=== PATIENT | female | born 1970 | race Caucasian/White ===

== ENCOUNTER 2019-12-05 10:40 | Emergency (ER) | payer BC, SELFPAY ==
[2019-12-05 10:56] VITALS: BP 128/105; PULSE 78; RESP 16; TEMP 37; O2SAT 98
--- NOTE | 2019-12-05 11:27 | ED.GENADULT ---
HPI - General Adult General Chief complaint: Extremity Injury, Lower Stated complaint: Jaw pain Time Seen by Provider: 12/05/19 11:27 Source: patient Mode of arrival: ambulatory Limitations: no limitations History of Present Illness HPI narrative: 5-year-old female patient presents to the [facility] with complaints of left-sided jaw pain. Patient states that over the weekend she [place] go [place] the river and [place]. Patient states that she did hit her left foot on a taniya piece of her friend's truck and states that is been a while since her tetanus. Patient states that the jaw pain started about 2 days ago she does have a history of TMJ. Patient states she has been taking the Tylenol for the pain. Patient states that it radiates to the left ear. Patient states that she has been in the river was concerned about possible ear infection from being in the river. Denies any fevers, body aches or chills. Patient states that she does see her dentist on December 06. Related Data Home Medications Medication Instructions Recorded Confirmed amlodipine 2.5 mg PO DAILY 12/05/19 12/05/19 citalopram 40 mg PO DAILY 12/05/19 12/05/19 methotrexate 12/05/19 methotrexate sodium 12/05/19 Allergies Allergy/AdvReac Type Severity Reaction Status Date / Time Penicillins Allergy Mild Hives Verified 12/05/19 11:07 Review of Systems Review of Systems: Narrative: CONSTITUTIONAL: Denies fever, chills, or sweats. EYES: Denies visual changes, redness, or discharge. ENT: Denies rhinorrhea, congestion, sore throat, positive left otalgia. Positive left-sided jaw pain CARDIOVASCULAR: Denies chest pain, palpitations, or edema. RESPIRATORY: Denies cough or dyspnea. GASTROINTESTINAL: Denies abdominal pain, nausea, vomiting, or diarrhea. GENITOURINARY: Denies dysuria or hematuria. SKIN: Denies rash or itching. MUSCULOSKELETAL: Denies back pain, joint pain, or myalgia. NEUROLOGIC: Denies headache, numbness, or weakness. PSYCHIATRIC: Denies anxiety or depression. [facility] Social History Social History Gender identity (if verbalized by the patient): Female Comments At the time of my signature I agree with nursing past medical history, surgical, social, and family history. There is no relevant family history pertinent to the presenting complaint. Exam Narrative: Exam Narrative: GENERAL: Well-appearing, well-nourished, and in no acute distress. HEAD: Normocephalic, atraumatic. EYES: PERRLA and EOMI. ENT: Nares clear, no rhinorrhea or epistaxis. Mucous membranes moist. Bilateral TMs are clear no erythema or foreign bodies in the canal. Posterior pharynx with no erythema, tonsil management, exudates or lesions present. Patient does not have any obvious broken teeth or dental caries noted on exam of the oral cavity however the left side of the cheek was palpated and possibly a small abscess noted to the cheek area near the jaw where her pain is. Patient does complain of pain when palpating the specific area. NECK: Supple. No lymphadenopathy CHEST: Clear to auscultation. No respiratory distress. HEART: Regular rate and rhythm. No murmur heard. Normal peripheral pulses. ABDOMEN: Soft, nontender, nondistended, normal active bowel sounds. EXTREMITIES: Normal range of motion. No edema. SKIN: Warm, dry, no rash. Patient has small superficial abrasion noted to the dorsal portion of the left foot of the midfoot. There is no surrounding erythema, no warmth to the touch. The area is scabbed over and appears to be healing well. NEURO: No focal deficits. Alert and oriented x3. Course Vital Signs Vital signs: Vital Signs Temperature 37.0 C 12/05/19 10:56 Pulse Rate 78 12/05/19 10:56 Respiratory Rate 16 12/05/19 10:56 Blood Pressure 128/105 H 12/05/19 10:56 Pulse Oximetry 98 12/05/19 10:56 Temperature 37.0 C 12/05/19 10:56 Pulse Rate 78 12/05/19 10:56 Respiratory Rate 16 12/04
[2019-12-05] MEDS: TETANUS,DIPHTHERIA,AC PERTUSSIS ADULT (0.5 ML) BOOSTRIX IM (11:43)
== END 2019-12-05 11:51 | disposition home or self-care (01) ==
PROVIDERS: Emergency Provider Nurse Practitioner Family; PCP Internal Medicine
DX: K04.7 Periapical abscess without sinus (principal); S90.812A Abrasion, left foot, initial encounter; W22.8XXA Striking against or struck by other objects, initial encounter; Z23 Encounter for immunization; I10 Essential (primary) hypertension; M19.90 Unspecified osteoarthritis, unspecified site; F32.9 Major depressive disorder, single episode, unspecified
CPT/HCPCS: 90471; 90715; 99213; G0463

== ENCOUNTER 2020-12-08 01:05 | Day surgery (SDC) | payer BC, SELFPAY ==
[2020-12-05 14:23] VITALS: BMI 38.5
[2020-12-08 10:58] VITALS: BP 122/79; PULSE 81; RESP 16; TEMP 35.5; O2SAT 99; BMI 37.6
[2020-12-08] MEDS: LACTATED RINGERS 1,000 ML 150 ML IV CONT (11:05)
--- NOTE | 2020-12-08 12:02 | WPDANESEPPF ---
Anes - Initial Pre Proc Eval Procedure: Operation Date: 12/08/20 12:15 Proposed Procedures p Screening Colonoscopy - Gopal Berman MD Date/Time: 12/08/20 12:02 Surgeon: Gopal Berman MD Pre Op Diagnosis: neoplasm screening Patient Data Age: 50 Gender: F Height: 1.65 m Weight: 102.7 kg Last Vital Signs Temp 96 F L 12/08/20 10:58 Pulse 81 12/08/20 10:58 Resp 16 12/08/20 10:58 BP 122/79 12/08/20 10:58 Pulse Ox 99 12/08/20 10:58 Allergies Allergy/AdvReac Type Severity Reaction Status Date / Time Penicillins Allergy Severe Difficulty Verified 12/08/20 10:57 Breathing Home Medications Medication Instructions Recorded Confirmed Type cholecalciferol (vitamin D3) 25 2,000 unit PO DAILY cap 02/17/19 12/05/20 History mcg (1,000 unit) capsule ferrous sulfate 325 mg (65 mg 325 mg PO .QD cap 02/17/19 12/05/20 History iron) capsule,extended release folic acid 1 mg tablet 1 mg PO DAILY 02/17/19 12/05/20 History mecobalamin (vitamin B12) 1,000 1,000 mcg SUBLINGUAL DAILY 02/17/19 12/05/20 History mcg disintegrating tablet,sublingual methotrexate sodium 2.5 mg tablet 20 mg PO WEEKLY tablet 02/17/19 12/05/20 History citalopram 40 mg tablet 40 mg PO DAILY #90 tablet 08/31/20 12/05/20 Rx amlodipine 5 mg tablet 5 mg PO DAILY #90 tablet 09/11/20 12/05/20 Rx Patient hx anesthesia problems: none Family hx anesthesia problems: none PMFSH Past Medical History Medical History (Updated 08/31/20 @ 14:35 by INÉS Gomez) Allergies Anemia Anxiety and depression Heartburn History of frequent headaches HTN (hypertension) Raynauds disease Rheumatoid arthritis UTI (urinary tract infection) Vaginal disorder Family History Family History Father Hypertension Mother Diabetes mellitus Sibling Hypertension Anxiety Skin cancer Social History Social History Smoking status: Never smoker Alcohol intake: current Drinks per week: 42 Alcohol use details: 5 days a week Substance use: never Substance use type: does not use Living arrangements: with family Gender identity (if verbalized by the patient): Female Spiritual care concerns: No Anes - Eval Final PreProcedure Day of Procedure 12/08/20 12:02 Patient weight: obese Heart: regular rate and rhythm Lungs: clear to auscultation Airway: Mallampati scale class II Neurological: alert and oriented Last oral intake: >/= 8 hours ASA classification: III Emergent: no Anesthetic plan: proceed Anesthesia type and monitoring: general GIVS and standard monitoring Informed Consent: The patient's anesthetic plan and its attendant risks and benefits were discussed with the patient/family/POA. Questions were solicited and answers provided to the satisfaction of the patient/family/POA.
--- NOTE | 2020-12-08 12:17 | PM.HPGS ---
History of Present Illness History of Present Illness Consent: Risks, benefits, and alternatives have been discussed and questions answered. Patient agrees to proceed with procedure. Chief complaint: neoplasm screening Narrative: Mel Webb is a 50 year old female with screening colonoscopy, last one 10 years ago. Review of Systems Constitutional: Constitutional: Denies headache(s) and Denies weakness Eyes: Eyes: Denies blurry vision ENT: Reports Normal hearing present, Denies headache(s) and Denies neck pain Cardiovascular: Cardiovascular: Denies chest pain and Denies dyspnea Respiratory: Respiratory: Denies dyspnea Gastrointestinal: Gastrointestinal: Reports no additional gastrointestinal complaints Genitourinary: Genitourinary: Denies dysuria Musculoskeletal: Musculoskeletal: Denies neck pain Integumentary/Breasts: Skin/Breast: Denies dry skin Neurologic: Reports Normal hearing present, Denies headache(s) and Denies weakness Psychiatric: Psychiatric: Denies anxiety Endocrine: Endocrine: Denies change in body appearance Hematologic/Lymphatic: Hematologic/Lymphatic: Denies easy bleeding Allergic/Immunologic: Allergic/Immunologic: Denies urticaria PMFSH Past Medical History Medical History (Updated 08/31/20 @ 14:35 by MARY Gomez-C) Allergies Anemia Anxiety and depression Heartburn History of frequent headaches HTN (hypertension) Raynauds disease Rheumatoid arthritis UTI (urinary tract infection) Vaginal disorder Family History Family History Father Hypertension Mother Diabetes mellitus Sibling Hypertension Anxiety Skin cancer Social History Social History Smoking status: Never smoker Alcohol intake: current Drinks per week: 42 Alcohol use details: 5 days a week Substance use: never Substance use type: does not use Living arrangements: with family Gender identity (if verbalized by the patient): Female Spiritual care concerns: No Meds Home Medications and Allergies Home Medications Medication Instructions Recorded Confirmed Type cholecalciferol (vitamin D3) 25 2,000 unit PO DAILY cap 02/17/19 12/05/20 History mcg (1,000 unit) capsule ferrous sulfate 325 mg (65 mg 325 mg PO .QD cap 02/17/19 12/05/20 History iron) capsule,extended release folic acid 1 mg tablet 1 mg PO DAILY 02/17/19 12/05/20 History mecobalamin (vitamin B12) 1,000 1,000 mcg SUBLINGUAL DAILY 02/17/19 12/05/20 History mcg disintegrating tablet,sublingual methotrexate sodium 2.5 mg tablet 20 mg PO WEEKLY tablet 02/17/19 12/05/20 History citalopram 40 mg tablet 40 mg PO DAILY #90 tablet 08/31/20 12/05/20 Rx amlodipine 5 mg tablet 5 mg PO DAILY #90 tablet 09/11/20 12/05/20 Rx Allergies Allergy/AdvReac Type Severity Reaction Status Date / Time Penicillins Allergy Severe Difficulty Verified 12/08/20 10:57 Breathing Vital Signs Vital Signs - 24 hr 12/08/20 10:58 Temperature 96 F L Pulse Rate 81 Respiratory Rate 16 Blood Pressure 122/79 Pulse Oximetry 99 Exam Const: General: comfortable and no acute distress HENMT: General nose exam: Normal nares present Eyes: General: appearance normal, both eyes and all related structures Neck: Neck: no JVD Resp: Auscultation: clear to auscultation bilaterally Cardio: Rate: regular rate Rhythm: regular rhythm GI: Inspection: non-distended GI Palp: Yes Soft to palpation Skin: General skin exam: normal color Neuro: General: gait normal Speech: normal speech Extrem: General: normal to inspection Psych: Mental Status: mental status grossly normal Assessment and Plan Assessment and plan (1) Screening for colon cancer: Code(s): Z12.11 - Encounter for screening for malignant neoplasm of colon Status: Acute Assessment and Plan: colonoscopy
[2020-12-08 12:37] VITALS: BP 112/78; PULSE 60; RESP 18; O2SAT 98
[2020-12-08 12:47] VITALS: BP 108/68; PULSE 61; RESP 20; O2SAT 98
[2020-12-08 12:57] VITALS: BP 114/63; PULSE 58; RESP 18; O2SAT 100
== END 2020-12-08 13:10 | disposition home or self-care (01) ==
PROVIDERS: PCP Internal Medicine; Visit Provider Internal Medicine Gastroenterology
PROC: 0DJD8ZZ Inspection of Lower Intestinal Tract, Via Natural or Artificial Opening Endoscopic (ICD-10-PCS; CPT 45378; principal; 2020-12-08 12:15)
DX: Z12.11 Encounter for screening for malignant neoplasm of colon (principal); R12 Heartburn; I10 Essential (primary) hypertension; I73.00 Raynaud's syndrome without gangrene; M06.9 Rheumatoid arthritis, unspecified; F32.9 Major depressive disorder, single episode, unspecified; F41.9 Anxiety disorder, unspecified
CPT/HCPCS: 45378; J2704; J7120

== ENCOUNTER 2021-07-28 12:09 | Emergency (ER) | payer BC, SELFPAY ==
[2021-07-28 12:15] VITALS: BP 173/98; PULSE 88; RESP 20; TEMP 36.6; O2SAT 99
--- NOTE | 2021-07-28 12:21 | ED.BURNSMOKE ---
HPI - Burn/Smoke Inhalation General Chief complaint: Burn/Smoke Inhalation Stated complaint: right hand burn Time Seen by Provider: 07/28/21 12:21 Source: patient History of Present Illness HPI Narrative: 10-year-old tetanus immunization rheumatoid arthritis, Raynaud's, anxiety / depression, hypertension chronic headaches presents to the ER after she spilled some cheese on her hands. She presents with -- blistering over right thumb and proximal index finger and erythema over the rest of her right hand. She also has 2 small-- 1 cm lesions on left hand. -- Severe pain. No other injuries noted. MD Complaint: burn Onset (ago): minute(s) ( 10 minutes ago) Type of Exposure: hot liquid ( melted cheese spill ) Smoke Inhalation: none Place: home Location: other ( hands) Location - Extremities: Right: hand Associated symptoms: denies other symptoms Related Data Home Medications Medication Instructions Recorded Confirmed cholecalciferol (vitamin D3) 25 2,000 unit PO DAILY cap 02/17/19 07/28/21 mcg (1,000 unit) capsule ferrous sulfate 325 mg (65 mg 325 mg PO .QD cap 02/17/19 07/28/21 iron) capsule,extended release folic acid 1 mg tablet 1 mg PO DAILY 02/17/19 07/28/21 mecobalamin (vitamin B12) 1,000 1,000 mcg SUBLINGUAL DAILY 02/17/19 07/28/21 mcg disintegrating tablet,sublingual methotrexate sodium 2.5 mg tablet 20 mg PO WEEKLY tablet 02/17/19 07/28/21 Allergies Allergy/AdvReac Type Severity Reaction Status Date / Time Penicillins Allergy Severe Difficulty Verified 12/08/20 10:57 Breathing Review of Systems Review of Systems: All systems reviewed & are unremarkable except as noted in HPI and below Constitutional: Constitutional: Reports as per HPI and Reports no additional constitutional complaints Eyes: Eyes: Reports as per HPI and Reports no additional eye complaints ENT: Reports system reviewed and no additional complaints, except as documented and Reports as per HPI Cardiovascular: Cardiovascular: Reports as per HPI and Reports no additional cardiovascular complaints Respiratory: Respiratory: Reports as per HPI and Reports no additional respiratory complaints Gastrointestinal: Gastrointestinal: Reports as per HPI and Reports no additional gastrointestinal complaints Genitourinary: Genitourinary: Reports no additional female genitourinary complaints and Reports as per HPI Musculoskeletal: Comments: chronic joint pains Integumentary/Breasts: Comments: 1st and second-degree melton of the right hand left hand Neurologic: Reports system reviewed and no additional complaints, except as documented and Reports as per HPI Psychiatric: Psychiatric: Reports no additional psychiatric complaints, Reports as per HPI and Reports anxiety Endocrine: Endocrine: Reports no additional endocrine complaints Hematologic/Lymphatic: Hematologic/Lymphatic: Reports no additional hematologic/lymphatic complaints and Reports as per HPI Allergic/Immunologic: Allergic/Immunologic: Reports no additional allergic/immunologic complaints and Reports as per HPI PMFSH Past Medical History Medical History Allergies Anemia Anxiety and depression Heartburn History of frequent headaches HTN (hypertension) Raynauds disease Rheumatoid arthritis UTI (urinary tract infection) Vaginal disorder Family History Family History Father Hypertension Mother Diabetes mellitus Sibling Hypertension Anxiety Skin cancer Social History Social History Smoking status: Never smoker Alcohol intake: current Drinks per week: 42 Alcohol use details: 5 days a week Substance use: never Substance use type: does not use Gender identity (if verbalized by the patient): Female Spiritual care concerns: No Exam Const: General: alert Orientation/cons
[2021-07-28] MEDS: HYDROmorphone HCL INJ (*CRX) 2 MG/ML VIAL 1 MG IM (12:25)
[2021-07-28] MEDS: ONDANSETRON HCL ODT 4 MG TABLET PO (12:25)
[2021-07-28 13:01] VITALS: PULSE 88; RESP 20; TEMP 36.6; O2SAT 99
--- NOTE | 2021-07-28 13:59 | PC.NURSE ---
1250 gauze bulky loose dressing applied to right hand.
== END 2021-07-28 13:05 | disposition home or self-care (01) ==
PROVIDERS: Emergency Provider Internal Medicine Critical Care Medicine; PCP Internal Medicine
DX: T23.041A Burn of unspecified degree of multiple right fingers (nail), including thumb, initial encounter (principal); X10.1XXA Contact with hot food, initial encounter
CPT/HCPCS: 96372; 99283; A9270; J1170

== ENCOUNTER 2022-03-04 12:41 | Outpatient (CLI) | payer BC, SELFPAY ==
[2022-03-04 19:53] LABS: Basophils Absolute Auto 0.1 K/mm3 (0.0-0.1); Basophils Percent Auto 0.6 % (0.2-1.2); Eosinophils Absolute Auto 0.2 K/mm3 (0-0.3); Eosinophils Percent Auto 2.3 % (0-4.4); Hematocrit 41.7 % (37.0-47.0); Hemoglobin 13.5 g/dL (12.0-15.0); Immature Granulocyte Absolute 0.06 K/mm3 (0.00-0.031); Immature Granulocyte Percent A 0.6 % (0-0.5); Lymphocytes Absolute Auto 2.31 K/mm3 (0.9-3.2); Lymphocytes Percent Auto 24.8 % (18.3-44.2); Mean Corpuscular HGB Conc 32.4 g/dl (32-36); Mean Corpuscular Hemoglobin 32.1 pg (26-34); Mean Corpuscular Volume 99.3 fl (80-100); Mean Platelet Volume 10.5 fl (7.4-10.4); Monocytes Absolute Auto 0.7 K/mm3 (0.1-0.6); Neutrophils Percent Auto 64.7 % (45.5-73.1); Platelet Count Result 255 k/mm3 (150-375); Red Cell Distribution Width 12.9 % (11.5-14.5); White Blood Count 9.3 K/mm3 (4.5-10.0)
[2022-03-04 20:05] LABS: Anion Gap 10 mmol/L (8-16); Blood Urea Nitrogen 15 mg/dL (7-17); Calcium 9.1 mg/dL (8.4-10.2); Carbon Dioxide 29 mmol/L (22-30); Chloride 101 mmol/L (98-107); Estimated Glomerular Filt Rate > 60; Glucose 122 mg/dL (65-110); Potassium 4.5 mmol/L (3.4-5.0); Sodium 140 mmol/L (137-145)
[2022-03-04 20:15] LABS: Iron 117 ug/dL (37-170)
[2022-03-04 20:30] LABS: Percent Iron Saturation 37 % (20-50)
== END 2022-03-04 12:42 | disposition home or self-care (01) ==
PROVIDERS: PCP Internal Medicine; Visit Provider Clinical Nurse Specialist
DX: R79.89 Other specified abnormal findings of blood chemistry (principal); I10 Essential (primary) hypertension; E83.10 Disorder of iron metabolism, unspecified; Z83.42 Family history of familial hypercholesterolemia
CPT/HCPCS: 36415; 80048; 81256; 82728; 83540; 83550; 85025

== ENCOUNTER 2022-03-13 11:19 | Outpatient (CLI) | payer BC, SELFPAY ==
--- NOTE | ~2022-03-13 | CT_ITS ---
EXAMINATION: CT abdomen pelvis w con DATE: 03/13/2022 11:44 INDICATION: Persistent left lower quadrant abdominal pain TECHNIQUE: Computed tomography (CT) of the abdomen and pelvis was performed with 100 CC Omnipaque 350 intravenous contrast. Automated exposure control and iterative reconstruction technique were employe d. Exam dose: 1057.71 mGy-cm total exam DLP. COMPARISON: None. FINDINGS: The lung bases are clear. Normal heart size. No pericardial or pleural effusion. The liver, gallbladder, spleen, pancreas and the bile ducts and pancreatic duct as well has the adren al glands and kidneys are unremarkable. Normal caliber of the abdominal aorta. No intraperitoneal or retroperitoneal or pelvic mass lesion or adenopathy or ascites. Uterus, adnexal areas and urinary bladder appear normal. Normal appendix. No bowel obstruction, bowel wall thickening, pneumatosis or intraperitoneal free air is detected. Small fat-containing umbilical hernia. Prominent degenerative spurring of the lower thoracic spine. Mild degenerative change of the lumbar s pine. No suspicious osteolytic or osteoblastic lesions are noted. IMPRESSION: Normal appendix; no significant abnormality Reviewed, dictated and finalized at [facility]. Reviewed, dictated and finalized at [facility]. [facility]
[2022-03-13 11:36] LABS: Estimated Glomerular Filt Rate > 60
== END 2022-03-13 11:20 ==
PROVIDERS: PCP Internal Medicine; Visit Provider Clinical Nurse Specialist
DX: R10.32 Left lower quadrant pain (principal)
CPT/HCPCS: 74177; Q9967

== ENCOUNTER → 2022-05-24 11:42 | Outpatient (CLI) | payer BC, SELFPAY ==
--- NOTE | ~2022-05-24 | MM_ITS ---
EXAMINATION: MM screening [place]iston BI w goran HISTORY: Screening mammogram TECHNIQUE: Craniocaudal and mediolateral oblique 3-D tomosynthesis images were obtained and synthetic 2-D images were generated. CAD analysis was submitted and interpreted. COMPARISON: No prior mammogram is available for comparison at this institution. BREAST PARENCHYMAL COMPOSITION: There are scattered areas of fibroglandular density. FINDINGS: There is no evidence of suspicious mass, calcification, or architectural distortion to sugg est malignancy in either breast. There has been no suspicious interval change. IMPRESSION: 1. No mammographic evidence of malignancy. 2. Recommend routine screening mammography in one year. BI-RADS Category 1: Negative Reviewed, dictated and finalized at [facility]. THCARE EDUCATOR
== END ==
PROVIDERS: PCP Obstetrics & Gynecology; Visit Provider Clinical Nurse Specialist
DX: Z12.31 Encounter for screening mammogram for malignant neoplasm of breast (principal)
CPT/HCPCS: 77063; 77067

== ENCOUNTER 2022-06-17 14:18 | Outpatient (CLI) | payer BC, SELFPAY ==
[2022-06-17 14:30] LABS: Basophils Absolute Auto 0.1 K/mm3 (0.0-0.1); Basophils Percent Auto 0.5 % (0.2-1.2); Eosinophils Absolute Auto 0.2 K/mm3 (0-0.3); Eosinophils Percent Auto 1.9 % (0-4.4); Hematocrit 39.7 % (37.0-47.0); Hemoglobin 13.1 g/dL (12.0-15.0); Immature Granulocyte Absolute 0.05 K/mm3 (0.00-0.031); Immature Granulocyte Percent A 0.5 % (0-0.5); Lymphocytes Absolute Auto 2.15 K/mm3 (0.9-3.2); Lymphocytes Percent Auto 19.4 % (18.3-44.2); Mean Corpuscular Volume 96.8 fl (80-100); Mean Platelet Volume 9.8 fl (7.4-10.4); Monocytes Absolute Auto 0.9 K/mm3 (0.1-0.6); Monocytes Percent Auto 8.5 % (2.6-8.5); Neutrophils Absolute Auto 7.7 K/mm3 (1.3-6.7); Neutrophils Percent Auto 69.2 % (45.5-73.1); Platelet Count Result 285 k/mm3 (150-375); Red Cell Distribution Width 12.6 % (11.5-14.5); White Blood Count 11.1 K/mm3 (4.5-10.0)
[2022-06-17 16:32] LABS: Iron 129 ug/dL (37-170)
[2022-06-17 16:36] LABS: Alanine Aminotransferase 33 U/L (6-35); Albumin Level 4.4 g/dL (3.5-5.1); Alkaline Phosphatase 85 U/L (38-126); Anion Gap 5 mmol/L (8-16); Aspartate Amino Transferase 27 U/L (14-36); Bilirubin,Total 0.5 mg/dL (0.2-1.3); Blood Urea Nitrogen 20 mg/dL (7-17); Calcium 9.4 mg/dL (8.4-10.2); Carbon Dioxide 28 mmol/L (22-30); Chloride 105 mmol/L (98-107); Estimated Glomerular Filt Rate > 60; Glucose 108 mg/dL (65-110); Sodium 138 mmol/L (137-145)
[2022-06-17 16:45] LABS: Percent Iron Saturation 44 % (20-50)
== END 2022-06-17 14:19 | disposition home or self-care (01) ==
LOC: ANHLAB 14:19
PROVIDERS: PCP Obstetrics & Gynecology; Visit Provider Internal Medicine Hematology & Oncology
DX: E83.110 Hereditary hemochromatosis (principal)
CPT/HCPCS: 36415; 80053; 82728; 83540; 83550; 85025

== ENCOUNTER 2023-09-30 09:08 | Outpatient (CLI) | payer OTHER, SELFPAY ==
[2023-09-30 12:26] LABS: Basophils Percent Auto 0.4 % (0.2-1.2); Eosinophils Absolute Auto 0.2 K/mm3 (0-0.3); Eosinophils Percent Auto 2.6 % (0-4.4); Hematocrit 39.6 % (37.0-47.0); Hemoglobin 12.7 g/dL (12.0-15.0); Immature Granulocyte Absolute 0.02 K/mm3 (0.00-0.031); Immature Granulocyte Percent A 0.3 % (0-0.5); Lymphocytes Absolute Auto 2.27 K/mm3 (0.9-3.2); Lymphocytes Percent Auto 28.6 % (18.3-44.2); Mean Corpuscular HGB Conc 32.1 g/dl (32-36); Mean Corpuscular Hemoglobin 31.6 pg (26-34); Mean Corpuscular Volume 98.5 fl (80-100); Mean Platelet Volume 10.7 fl (7.4-10.4); Monocytes Absolute Auto 0.8 K/mm3 (0.1-0.6); Monocytes Percent Auto 9.8 % (2.6-8.5); Neutrophils Absolute Auto 4.6 K/mm3 (1.3-6.7); Neutrophils Percent Auto 58.3 % (45.5-73.1); Platelet Count Result 247 k/mm3 (150-375); Red Blood Count 4.02 M/mm3 (4.2-5.4); Red Cell Distribution Width 12.6 % (11.5-14.5); White Blood Count 7.9 K/mm3 (4.5-10.0)
[2023-09-30 12:46] LABS: Alanine Aminotransferase 23 U/L (6-35); Albumin Level 4.2 g/dL (3.5-5.1); Alkaline Phosphatase 88 U/L (38-126); Anion Gap 6 mmol/L (4-12); Aspartate Amino Transferase 42 U/L (14-36); Bilirubin,Total 0.4 mg/dL (0.2-1.3); Blood Urea Nitrogen 17 mg/dL (7-17); Calcium 9.1 mg/dL (8.4-10.2); Carbon Dioxide 30 mmol/L (22-30); Chloride 106 mmol/L (98-107); Cholesterol 175 mg/dL (0-200); Estimated Glomerular Filt Rate > 60; Glucose 111 mg/dL (65-110); HDL Direct 64 mg/dL; Potassium 4.8 mmol/L (3.4-5.0); Sodium 142 mmol/L (137-145); Triglycerides 95 mg/dL (<150)
[2023-09-30 12:57] LABS: LDL Cholesterol Direct 91 mg/dL
[2023-09-30 13:08] LABS: Vitamin D 25 Hydroxy 68.5 ng/mL
[2023-09-30 14:30] LABS: Hemoglobin A1C 5.7 % (<5.7)
== END 2023-09-30 09:09 | disposition home or self-care (01) ==
LOC: ANHGOSHLAB 09:10
PROVIDERS: PCP Internal Medicine; Visit Provider Clinical Nurse Specialist
DX: D64.9 Anemia, unspecified (principal); E83.119 Hemochromatosis, unspecified; I10 Essential (primary) hypertension; R94.4 Abnormal results of kidney function studies; R73.09 Other abnormal glucose; E53.8 Deficiency of other specified B group vitamins
CPT/HCPCS: 36415; 80053; 80061; 82306; 82607; 83036; 84443; 85025

== ENCOUNTER 2023-11-24 10:44 | Outpatient (CLI) | payer OTHER, SELFPAY ==
--- NOTE | ~2023-11-24 | MM_ITS ---
EXAMINATION: MM screening triston BI w goran HISTORY: Screening TECHNIQUE: Craniocaudal and mediolateral oblique 3-D tomosynthesis images were obtained and synthetic 2-D images were generated. CAD analysis was submitted and interpreted. COMPARISON: Comparison to multiple prior studies sequentially, with oldest reviewed study dated 05/24. BREAST PARENCHYMAL COMPOSITION: Not dense: There are scattered areas of fibroglandular density. FINDINGS: There is no evidence of suspicious mass, calcification, or architectural distortion to sugg est malignancy in either breast. There has been no suspicious interval change. IMPRESSION: 1. No mammographic evidence of malignancy. 2. Recommend routine screening mammography in one year. BI-RADS Category 1: Negative Reviewed, dictated and finalized at [facility].
== END 2023-11-24 10:45 ==
LOC: MICIMG 10:45
PROVIDERS: PCP Clinical Nurse Specialist; Visit Provider Clinical Nurse Specialist
DX: Z12.31 Encounter for screening mammogram for malignant neoplasm of breast (principal)
CPT/HCPCS: 77063; 77067

== ENCOUNTER 2024-02-23 09:43 | Outpatient (CLI) | payer OTHER, SELFPAY ==
[2024-03-15 11:43] VITALS: BMI 41.6
--- NOTE | 2024-03-15 11:43 | P.SLEEP_ITS ---
Sleep Study - Home Unattended Date of Study: 02/23/24 Ordering Provider: MARY Gomez-Marcio Interpreting Provider: Rubina Craft, DO Home Sleep Study Type: Watch PAT Height: 1.6 m Weight: 106.594 kg Body Mass Index: 41.6 Neck Circumference (inches): 15.75 [place]: 14 Reason for Sleep Study Excessive daytime sleepiness Sleep History The patient is a 53-year-old female that had a sleep study ordered by the primary care for evaluation of sleep apnea. The patient admits to snoring loudly, excessive daytime sleepiness, interruptions of breathing while asleep, trouble maintaining sleep, trouble falling asleep and unwanted behaviors during sleep. The patient admits to having difficulty falling asleep and staying asleep. The patient denies any hypnotic or sedative use. The patient denies feeling anxious about sleep. The patient admits to feeling tired or sleepy during the day. She feels on refreshed in the morning. She has the urge to fall asleep during the day. She feels drowsy while driving. She denies stopping breathing while asleep. She denies choking or gasping while asleep. She denies having trouble breathing on her back. She denies morning headaches. She admits to having a dry or sore mouth/ throat in the morning. She denies nocturnal heartburn. She urinates twice per night. She denies sleep paralysis, cataplexy and hypnagogic / hypnopompic hallucinations. She admits to clenching or grinding her teeth. She admits to kicking or jerking her legs excessively at night. She denies having a restless feeling in her legs. She goes to bed at 11:30 p.m. on weekdays and at 1:00 a.m. on the weekends. It takes her 2 hours to fall asleep on weekdays and 3 hours to fall asleep on weekends. She typically gets 5 hours of sleep on the weekends. Her sleep is not at all restorative on her days off. She denies any planned naps. She admits to acting out dreams or having violent dreams. She does sleep walk as an adult and as a child. She consumes more than 5 caffeinated beverages per day. She consumes more than 3 alcoholic beverages on most night. She denies tobacco use. She does have a rotating shift schedule at work. [facility] Past Medical History Medical History Allergies Anemia Anxiety and depression Elevated ferritin Elevated glucose level Encounter for screening mammogram for breast cancer Family history of hemochromatosis Heartburn History of frequent headaches Hospital discharge follow-up HTN (hypertension) Hypernatremia Left lower quadrant pain Raynauds disease Rheumatoid arthritis Screening for colon cancer Tobacco abuse UTI (urinary tract infection) Vaginal disorder Vaginal yeast infection Family History Family History Father Hypertension Mother Diabetes mellitus Sibling Hypertension Anxiety Skin cancer Social History Social History Smoking status: Never smoker Alcohol intake: current Drinks per week: 42 Alcohol use details: 5 days a week Substance use: never Substance use type: does not use Lack of Transportation: No Lack of Food: Never True Current Housing: I Have Housing Concerned About Future Housing: No Difficulty Paying Gas/Electric Bills: No Difficulty Paying for Meds: No Currently Unemployed: No Education: High School Diploma/GED Difficulty w/ Childcare or Family Care: No Living arrangements: with family Gender identity (if verbalized by the patient): Female Spiritual care concerns: No Medications Home Medications Medication Instructions Recorded Confirmed Type cholecalciferol (vitamin D3) 25 2,000 unit PO DAILY 02/17/19 11/20/23 History mcg (1,000 unit) capsule ferrous sulfate 325 mg (65 mg 325 mg PO .QD 02/17/19 11/20/23 History iron) capsule,extended release folic acid 1 mg tablet 1 mg PO DAILY 02/17/19 11/20/23 History mecobalamin (vitamin B12) 1,000 1,000 mcg sublingual DAILY 02/17/19 11/20/23 History mcg disintegrating tablet,sublingual hydrocodone 5 mg-acetaminophen 325 1 tablet PO Q8H PRN pain #10 tabs 07/28/21 11/20/23 Rx mg tablet triamcinolone acetonide 0.1 % 1 applic topical TID #30 grams 08/09/23 08/15/24 Rx topical cream citalopram 40 mg tablet See Rx Instructions .Route 09/30/23 11/20/23 Rx .COMPLEX #90 tabs alprazolam 0.25 mg tablet (Xanax) 0.25 mg PO DAILY #10 tabs 11/20/23 11/20/23 Rx lisinopril 20 mg tablet 20 mg PO DAILY #90 tabs 01/02/24 Rx eszopiclone 2 mg tablet (Lunesta) 2 mg PO QHS #1 tablet 02/23/24 Rx Sleep Procedure The sleep study was completed using [employer] a technically adequate device with seven channels: peripheral arterial tone, actigraphy, body position, snore, respiratory movement, pulse oximetry, sleep staging, and heart rate. Prior to using the device, the patient received verbal and written instructions for its application and was provided with the help desk phone number for additional telephonic instruction with 24-hour availability of qualified personnel to answer questions. The study was scored using CMS guidelines. Sleep Architecture The total recording time is 9 hrs, 12 min. The total sleep time is 8 hrs, 3 min. Sleep latency is 5 minutes. REM latency is 87 minutes. The patient had 13 episodes of waking. Sleep architecture shows 15.6% deep sleep, 63.3% light sleep, and (as % Total Sleep Time) showed NREM (Light 63.3%; Deep 15.6%), and a 21.1% stage REM. The patient spent 36.7% of total sleep time in the supine position. Sleep efficiency was 87.50. Respiratory Analysis The overall AHI (pAHI 4%:) is 38.7. The central AHI is 3.2. The AHI was 30.7 in NREM and 67.9 in REM sleep. The AHI was 50.6 in Supine and 31.5 in Non-supine sleep. Percent of Mark Torres respirations is 0.0. Oximetry Data The oxygen desaturation index (KAMRAN 4%:) is 37.4. The mean saturation is 93%, and the lowest saturation is 69%. Time spent with saturation < 88% is 30.6 minutes. Snoring Profile Snoring average intensity is 54 dB. The patient snored above 45 decibels for 354.9 minutes, 73.4% of sleep time. Cardiac Profile The average pulse rate is 64 beats per minutes. The lowest pulse rate is 47 bpm. The highest pulse rate reported is 102 bpm. Atrial fibrillation was not detected. Premature beats occur <0.1 per minute. Assessment and Plan Assessment and Plan (1) LIEN (obstructive sleep apnea): Code(s): G47.33 - Obstructive sleep apnea (adult) (pediatric) Status: Acute Assessment and Plan: The patient had an overall AHI of 37.4 with desaturation down to 69%. This is consistent with severe sleep apnea. I recommend that the patient had a CPAP titration study with the use of a hypnotic (Lunesta 2-3 mg or Ambien 5-10 mg) to ensure we obtain enough sleep data and find an optimal pressure. The patient mentioned having dream enactment behavior in her sleep history. If she is acting out her dreams, she needs to be followed by Sleep Medicine. Data The data obtained during this sleep study is adequate for interpretation. Certification This sleep study has been reviewed by a board certified sleep medicine physician.
== END 2024-02-24 15:45 | disposition home or self-care (01) ==
LOC: ANHCSM 09:47
PROVIDERS: PCP Clinical Nurse Specialist; Visit Provider Clinical Nurse Specialist
DX: G47.10 Hypersomnia, unspecified (principal); G47.33 Obstructive sleep apnea (adult) (pediatric)
CPT/HCPCS: 95800

== ENCOUNTER 2024-08-23 15:00 | Outpatient (CLI) | payer OTHER, SELFPAY ==
--- OUTSIDE RECORDS SUMMARY | 2024-08-23 15:06 | XMS_ITS | Clinical Summary ---
Author Organization [facility] [place] [facility] Address [address] [place] [address] Care Team Providers Care Fire Hose Curer Name Role Phone Yuan Hope DO Primary Care Provider Allergies Active Allergy Reactions Criticality Noted Date Comments Penicillins Shortness of Breath/Wheezing High 2022 Medications citalopram (CeleXA) 40 mg tablet Take 40 mg by mouth daily. Active lisinopriL (PRINIVIL) 10 mg tablet Take by mouth daily. Active cyanocobalamin 1,000 mcg Tablet Take 1,000 mcg by mouth daily. Active cholecalciferol, vitamin D3, 5,000 unit Take 400 Units by mouth daily. Active Garlic 100 mg Tablet Take by mouth. Active Active Problems No known active problems Family History Medical History Relation Name Comments Skin Cancer Father Diabetes Mother Skin Cancer Sister 1 No Known Problems Sister 2 No Known Problems Son Relation Name Status Comments Father Alive Mother Alive Sister 1 Alive Sister 2 Alive Son Alive Social History Tobacco Use Types Packs/Day Years Used Date Smoking Tobacco: Never Smokeless Tobacco: Never Tobacco Cessation:Counseling Given: Not Answered Alcohol Use Standard Drinks/Week Comments Yes 30 (1 standard drink = 0.6 oz pu re alcohol) Comments Unknown Sex and Gender Information Value Date Recorded Sex Assigned at Not on file 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 Gender Identity Not on file Sexual Orientation Not on file Last Filed Vital Signs Vital Sign Reading Time Taken Comments Blood Pressure 138/96 10/17/2022 3:50 PM CDT Pulse 89 10/17/2022 3:49 PM CDT Temperature 36.9 C (98.5 F) 10/17/2022 3:49 PM CDT Respiratory Rate 10 10/17/2022 3:49 PM CDT Oxygen Saturation 97% 10/17/2022 3:49 PM CDT Inhaled Oxygen Concentration - - Weight 107.5 kg (237 lb) 10/17/2022 3:49 PM CDT Height 167.6 cm (5' 6) 06/17/2022 1:38 PM CDT Body Mass Index 38.25 06/17/2022 1:38 PM CDT Plan of Treatment Health Maintenance Due Date Last Done Comments DTAP/TDAP/TD VACCINES (1 - Tdap) 12/03/1990 HEPATITIS B VACCINES (1 of 3 - 19+ 3-dose series) 11/06 HPV/Cotest (21-29) 12/03/1992 CERVICAL CANCER SCREENING 12/03/2001 HPV/Cotest (30-65) 12/03/2001 PAP SMEAR 12/03/2001 BREAST CANCER SCREENING 2011 COLORECTAL SCREENING 12/03/2016 Colorectal Cancer Screening 12/03/2016 FIT-DNA Q 3 years 12/03/2016 FIT/FOBT Q 1 year 12/03/2016 Flex Sig/CT Colonography Q 5 years 12/03/2016 ZOSTER VACCINE (1 of 2) 12/03/2021 INFLUENZA VACCINE (#1) [address] [place] [address] [address] PREFERRED Care Teams Fire Hose Curer Relationship Specialty Start Date End Date Yuan Hope DO [address] [address] PCP - General Internal Medicine 06/17/22
--- OUTSIDE RECORDS SUMMARY | 2024-08-23 15:06 | XMS_ITS | Clinical Summary ---
Author Organization 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 Gender Identity Not on file Sexual Orientation Not on file Plan of Treatment Health Maintenance Due Date Last Done Comments Cervical Cancer Screening Pa p Smear (Age 30 to 64) Every 3 Years 1971 Colorectal Cancer Screening Colonoscopy (10 Years) 1971 Annual Physical 12/03/1974 Hepatitis C 12/03/1989 DTaP, Tdap and Td Vaccines ( 1 - Tdap) 12/03/1990 Hepatitis B Vaccines (1 of 3 - 19+ 3-dose series) 12/03/1990 Cervical Cancer Screening Pa p with HPV Testing (Age 30 to 64) Every 5 Years 12/03/2001 Cervical Cancer Screening with HPV 12/03/2001 Mammogram Screening 2011 Pneumococcal Vaccine: 50+ Ye ars (1 of 1 - PCV) 12/03/2021 Zoster Vaccines (1 of 2) 12/03/2021 COVID-19 Vaccine (2023-2 5 season) 2023 Meningococcal B Vaccine Aged Out No l onger eligible based on patient's age to complete this topic Meningococcal Vaccine Aged Out No [facility] eligible based on patient's age to complete this topic RSV Immunizations Under 20 Months Aged Out No longer eligible based on patient's age to complete this topic
--- OUTSIDE RECORDS SUMMARY | 2024-08-23 15:06 | XMS_ITS | Clinical Summary ---
Author Organization [facility] [employer] Address [address] [place] [address] Care Team Providers Care Health Promotion Specialist Name Role Phone Yuan Hope DO Primary Care Provider [phone] Source Comments [facility],non-owned Affiliates and Associated Physician Practices is amultiple site organization consisting of ambulatory clinics and hospital sitesin [place], [place], [place] and [place]. This disclosure is being madepursuant to the Care Everywhere program and may not contain all information available regarding this patient. Last updated 17.[facility] [employer] Allergies Active Allergy Reactions Criticality Noted Date Comments Penicillins Shortness of Breath High 09/07/2014 Medications * Be aware that medications may not be up to date on this document. Alwaysverify current medications with the patient. folic acid (FOLVITE) 1 MG tablet Take 1 mg by mouth DAILY. 90 tablet 3 11/28/2016 Active hydroxychloroqui ne (PLAQUENIL) 200 MG tablet 60 tablet 5 03/22/2016 Active amLODIPine (NORVASC) 5 MG tablet Take 5 mg by mouth DAILY. 30 tablet 6 12/20/2015 Active citalopram (CELEXA) 40 MG tablet Take 40 mg by mouth DAILY. 30 tablet 6 12/20/2015 Active HYDROcodone-acet aminophen (NORCO) 5-325 MG tablet 0 10/30/2015 Active sulfaSALAzine EC (AZULFIDINE ENTAB) 500 MG tablet Take 1 tablet by mouth 2 times daily as needed 90 tablet 12/09/2017 Active Active Problems Problem Noted Date Diagnosed Date Fracture of right calcaneus with routine healing 12/29/2015 Sprain of other ligament of right ankle, subsequent encounter 12/29/2015 Sprain of right knee 12/01/2015 Closed fracture of left calcaneus 11/03/2015 Pain in left ankle 11/03/2015 Noninfective gastroenteritis and colitis 016 Overview (07/07/2017): 05/2015: patient reports previous diagnosis collagenous colitis. Currently on sulfasalazine. Obtaining records to confirm. 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 Overview (07/07/2017): my whole life Other seasonal allergic rhinitis 09/07/2014 Personal history of other en docrine, nutritional and metabolic disease 09/07/2014 Raynaud's syndrome without gangrene 09/07/2014 Essential (primary) hypertension 09/07/2014 Major depressive disorder, single episode 2014 Overview (07/07/2017): Age 17, overdose attempt age 26 Family History Medical History Relation Name Comments Hypertension Father Status: Alive Diabetes Mother Status: Alive Hypertension Sister Status: Alive None Known Sister Status: Alive Asthma Son Status: Alive Thyroid Disease Neg Hx Relation Name Status Comments Father Mother Sister Son Social History Tobacco Use Types Packs/Day Years Used Date Smoking Tobacco: Never Smokeless Tobacco: Never Alcohol Use Standard Drinks/Week Comments Yes 0 (1 standard drink = 0.6 oz pur e alcohol) Comments Unknown Sex and Gender Information Value Date Recorded Sex Assigned at Not on file Legal Sex Female 5:14 PM FORM WORKER Gender Identity Not on file Sexual Orientation Not on file Last Filed Vital Signs Vital Sign Reading Time Taken Comments Blood Pressure 149/108 03/21/2016 12:08 PM FORM WORKER Pulse 84 03/21/2016 12:08 PM FORM WORKER Temperature 36.8 C (98.3 F) 03/21/2016 12:08 PM FORM WORKER Respiratory Rate 18 03/21/2016 12:08 PM FORM WORKER Oxygen Saturation 100% 03/21/2016 12:08 PM FORM WORKER Inhaled Oxygen Concentration - - Weight 99.9 kg (220 lb 4.8 oz) 03/21/2016 12:08 PM FORM WORKER Height 166.4 cm (5' 5.5) 03/21/2016 12:08 PM CS T Body Mass Index 36.1 03/21/2016 12:08 PM FORM WORKER Plan of Treatment Health Maintenance Due Date Last Done Comments COLOGUARD (AGES 45-75) - COL ON CA SCREENING 1971 COLON MONITORING 1971 COLONOSCOPY - COLON CA SCREENING 1971 CT COLONOGRAPHY - COLON CA SCREENING 1971 Colorectal Cancer Screening 1971 FIT - COLON CA SCREENING 1971 FLEX SIG - COLON CA SCREENING 1971 MAMMOGRAM 1971 HIV SCREENING 12/03/1986 DTAP/TDAP/TD VACCINES (1 - Tdap) 12/03/1990 HEPATITIS B VACCINE (1 of 3 - 19+ 3-dose series) 12/03/1990 LIPID TESTING 09/08/2019 09/07/2014 PNEUMOCOCCAL VACCINE 50+ (1 of 1 - PCV) 12/03/2021 ZOSTER VACCINE (1 of 2) 12/03/2021 COVID-19 VACCINE (1 - 2023-2 5 season) 2023 DEPRESSION SCREENING 04/07/2024 INFLUENZA VACCINE (Season Ended) 2024 HEPATITIS C SCREENING Completed 07/25/2015 HIB VACCINE Aged Out No longer eligi ble based on patient's age to complete this topic HPV VACCINE Aged Out No longer eligi ble based on patient's age to complete this topic MENINGOCOCCAL (Group B) VACC INE SHARED DECISION-MAKING Aged Out No longer eligibl e based on patient's age to complete this topic MENINGOCOCCAL GROUPS A/C/Y/W VACCINE Aged Out No longer eligible b ased on patient's age to complete this topic Procedures Procedure Name Priority Date/Time Associated Diagnosis Comments HEPATITIS C ANTIBODY Routine 07/25/2015 1:33 PM CDT LIPID PROFILE Routine 09/07/2014 10:01 AM CDT from Last 3 Months or Most Recently Relevant to Health Maintenance Results * HEPATITIS C ANTIBODY (07/25/2015 1:33 PM CDT) Hepatitis C Antibody Non-react kofi Non-reac tive [facility] Comment: Hepatitis C Antibody screen indicates no serologic evidence of past or current infection with Hepatitis C Virus. Patients with unexplained liver disease who are immunocompromised or suspected of having acute Hepatitis C infection may benefit from Nucleic Acid Test (SHRUTI) for Hepatitis C Viral RNA to confirm Hepatitis C status. Blood specimen (specimen) BLOOD SPECIMEN / Unknown 07/25/2015 1:33 PM CDT 07/25/2015 1:51 PM CDT us Zaria Chandra MD LAB - CHEMISTRY OR DERABLES Final Result [address] [phone] * LIPID PROFILE (09/07/2014 10:01 AM CDT) Cholesterol Total 177 <200 mg/dL [facility] HDL 68 >40 mg/dL [facility] Comment: ATP III Classification of HDL Cholesterol: <40 mg/dL: Considered a major risk factor. >60 mg/dL: Considered a negative risk factor. LDL Calculated 93 <100 mg/dL [facility] Comment: ATP III Classification of LDL Cholesterol: <100 mg/dL: Optimal 100 - 129 mg/dL: Near Optimal/Above Optimal 130 - 159 mg/dL: Borderline High 160 - 189 mg/dL: High >190 mg/dL: Very High Triglycerides 82 <150 mg/dL [facility] Comment: ATP III Classification of Triglycerides: <150 mg/dL: Normal 150 - 199 mg/dL: Borderline High 200 - 400 mg/dL: High >500 mg/dL: Very High Blood specimen (specimen) BLOOD SPECIMEN / Unknown 09/07/2014 10:01 AM CDT 09/07/2014 10:19 AM CDT us Margi Denton APRN-SUBSTANCE ADDICTION COORDINATOR LAB - CHEMISTRY ORDERABLE S Final Result [facility] [address] [place] [address], [facility] [phone] from Last 3 Months or Most Recently Relevant to Health Maintenance Insurance Care Teams Health Promotion Specialist Relationship Specialty Start Date End Date Yuan Hope DO PCP - General 07/03/15
--- OUTSIDE RECORDS SUMMARY | 2024-08-23 15:06 | XMS_ITS | Referral Summary ---
Author Organization [facility] Address [address] [place] [address] Care Team Providers Care Certified Orthotist Name Role Phone Yuan Hope DO Primary Care Provider [phone]- [phone] Allergies Active Allergy Reactions Criticality Noted Date Comments Penicillins Shortness of breath High 09/07/2014 Medications amLODIPine (NORVASC) 5 mg tablet TK 1 T PO D 05/05/2019 Active citalopram (CeleXA) 40 mg tablet TK 1 T PO D 05/02/2019 Active folic acid (FOLVITE) 1 mg tablet TK 1 T PO D 05/03/2019 Active methotrexate 2.5 mg tablet TK 8 TS PO ONCE WEEKLY UTD 03/30/2019 Active sulfaSALAzine (AZULFIDINE) 500 mg tablet 05/06/2019 Active azithromycin (ZITHROMAX) 250 mg tablet Take 2 tabs (500 mg) by mouth today, than 1 tab (250 mg) daily for 4 days. 6 tablet 04/04/2024 Active Active Problems Problem Noted Date Diagnosed Date Bilateral primary osteoarthritis of knee 020 Tear of PCL (posterior cruci ate ligament) of knee, right, subsequent encounter 09/02/2019 Fracture of right calcaneus with routine healing 12/29/2015 Sprain of right ankle 12/29/2015 Sprain of right knee 12/01/2015 Pain in left ankle 11/03/2015 Noninfective gastroenteritis and colitis 016 Overview (05/12/2019): 05/2015: patient reports previous diagnosis collagenous colitis. Currently on sulfasalazine. Obtaining records to confirm. 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 Other seasonal allergic rhinitis 09/07/2014 Major depressive disorder, single episode 2014 Overview (05/12/2019): Age 17, overdose attempt age 26 Raynaud's syndrome without gangrene 09/07/2014 Personal history of other en docrine, nutritional and metabolic disease 09/07/2014 Drug indicated 09/09/2012 Overview (07/12/2016): 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 non-steroidal anti-inflam Rheumatoid arthritis 09/09/2012 Overview (07/12/2016): Rheumatoid arthritis 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 Essential (primary) hypertension 09/09/2012 Overview (05/12/2019): Benign essential HTN Adjustment disorder with mixed anxiety and depre ssed mood 09/09/2012 Overview (07/12/2016): Adjustment reaction with anxiety and depression Social History Tobacco Use Types Packs/Day Years Used Date Smoking Tobacco: Never Smokeless Tobacco: Never Tobacco Cessation:Counseling Given: Not Answered Comments Unknown Sex and Gender Information Value Date Recorded Sex Assigned at Not on file Legal 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 Gender Identity Not on file Sexual Orientation Not on file Last Filed Vital Signs Vital Sign Reading Time Taken Comments Blood Pressure 154/110 04/04/2024 12:32 PM AIRPLANE COVERER Pulse 86 04/04/2024 11:49 AM AIRPLANE COVERER Temperature 37.1 C (98.8 F) 04/04/2024 11:49 AM AIRPLANE COVERER Respiratory Rate 18 04/04/2024 11:49 AM AIRPLANE COVERER Oxygen Saturation 98% 04/04/2024 11:49 AM AIRPLANE COVERER Inhaled Oxygen Concentration - - Weight 109.8 kg (242 lb) 04/04/2024 11:49 AM AIRPLANE COVERER Height 160 cm (5' 3) 04/04/2024 11:49 AM AIRPLANE COVERER Body Mass Index 42.87 04/04/2024 11:49 AM AIRPLANE COVERER Plan of Treatment Not on file Insurance [facility] P[facility] HMO/PPO Address: [address] [address] [place] [address] Care Teams Certified Orthotist Relationship Specialty Start Date End Date Yuan Hope DO PCP - General Internal Medicine 05/07/19
--- OUTSIDE RECORDS SUMMARY | 2024-08-23 15:06 | XMS_ITS | Clinical Summary ---
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 Essential (primary) hypertension 09/09/2012 Overview (05/12/2019): Benign essential HTN Adjustment disorder with mixed anxiety and depre ssed mood 09/09/2012 Overview (07/12/2016): Adjustment reaction with anxiety and depression Medical History Medical History Date Comments Anemia Hypertension Poor circulation Family History Medical History Relation Name Comments Arthritis Other Cancer Other Hypertension Other Relation Name Status Comments Other Social History Tobacco Use Types Packs/Day Years Used Date Smoking Tobacco: Never Smokeless Tobacco: Never Tobacco Cessation:Counseling Given: Not Answered Comments Unknown Sex and Gender Information Value Date Recorded Sex Assigned at Not on file Legal Sex Female 10:41 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 Gender Identity Not on file Sexual Orientation Not on file Obstetrics History Last Filed Vital Signs Vital Sign Reading Time Taken Comments Blood Pressure 154/110 04/04/2024 12:32 PM VISITOR 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 Pulse 86 04/04/2024 11:49 AM VISITOR 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 Temperature 37.1 C (98.8 F) 04/04/2024 11:49 AM VISITOR 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 Respiratory Rate 18 04/04/2024 11:49 AM VISITOR 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 Oxygen Saturation 98% 04/04/2024 11:49 AM VISITOR 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 Inhaled Oxygen Concentration - - Weight 109.8 kg (242 lb) 04/04/2024 11:49 AM VISITOR 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 Height 160 cm (5' 3) 04/04/2024 11:49 AM VISITOR 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 Body Mass Index 42.87 04/04/2024 11:49 AM VISITOR 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 Plan of Treatment Health Maintenance Due Date Last Done Comments Breast Cancer Screening-Mammogram 1971 Cervical Cancer Screening 1971 Colon Cancer Screening-Colonoscopy 1971 Depression Screening 1971 Hepatitis C Screening 1971 DTaP/Tdap/Td Vaccine (1 - Tdap) 12/03/1982 Hepatitis B Screening 12/03/1989 Regular Well Visit/Exam 18-64 12/03/1989 Pneumococcal vaccine <65 (1 of 2 - PCV) 12/03/1990 Zoster Vaccine (1 of 2) 12/03/1990 Influenza Vaccine (Season Ended) 2024 Insurance [facility] Care Teams Car Detailer Relationship Specialty Start Date End Date Yuan Hope DO PCP - General Internal Medicine 05/07/19
--- NOTE | 2024-09-17 12:47 | P.SLEEP_ITS ---
Sleep Study Date of Study: 08/23/24 Ordering Provider: Rubina Craft DO Interpreting Physician: Kyar Aranda MD Sleep Study Type: CPAP Titration Height: 1.6 m Weight: 108.409 kg Body Mass Index: 42.3 Neck Circumference (inches): 16 [place]: 14 Reason for Sleep Study * 02/23/2024 Home sleep test with [facility] showing severe obstructive sleep apnea, the overall AHI is 37.4 desaturation to 69% and mentioning of dream enactment behavior in her history. She returns for an in-lab CPAP titration. Sleep History This history is taken from her 02/23/2024 sleep questionnaire. Mel Webb is a 53-year-old female who returns for a CPAP titration due to positive findings with severe obstructive sleep apnea on her February 2020 for home sleep test. The patient admits to snoring loudly, excessive daytime sleepiness, interruptions of breathing while asleep, trouble maintaining sleep, trouble falling asleep and unwanted behaviors during sleep. The patient admits to having difficulty falling asleep and staying asleep. The patient denies any hypnotic or sedative use. The patient denies feeling anxious about sleep. The patient admits to feeling tired or sleepy during the day. She feels on refreshed in the morning. She has the urge to fall asleep during the day. She feels drowsy while driving. She denies stopping breathing while asleep. She denies choking or gasping while asleep. She denies having trouble breathing on her back. She denies morning headaches. She admits to having a dry or sore mouth/ throat in the morning. She denies nocturnal heartburn. She urinates twice per night. She denies sleep paralysis, cataplexy and hypnagogic / hypnopompic hallucinations. She admits to clenching or grinding her teeth. She admits to kicking or jerking her legs excessively at night. She denies having a restless feeling in her legs. She goes to bed at 11:30 p.m. on weekdays and at 1:00 a.m. on the weekends. It takes her 2 hours to fall asleep on weekdays and 3 hours to fall asleep on weekends. She typically gets 5 hours of sleep on the weekends. Her sleep is not at all restorative on her days off. She denies any planned naps. She admits to acting out dreams or having violent dreams. She does sleep walk as an adult and as a child. She consumes more than 5 caffeinated beverages per day. She consumes more than 3 alcoholic beverages on most night. She denies tobacco use. She does have a rotating shift schedule at work. [facility] Past Medical History Medical History Tobacco abuse Left lower quadrant pain Family history of hemochromatosis Elevated ferritin Hospital discharge follow-up Elevated glucose level Screening for colon cancer Encounter for screening mammogram for breast cancer Hypernatremia Raynauds disease Vaginal disorder History of frequent headaches Allergies Anemia Anxiety and depression Rheumatoid arthritis UTI (urinary tract infection) Heartburn HTN (hypertension) Vaginal yeast infection Family History Family History Father Hypertension Mother Diabetes mellitus Sibling Hypertension Anxiety Skin cancer Social History Social History Smoking status: Never smoker Alcohol intake: current Drinks per week: 42 Alcohol use details: 5 days a week Substance use: never Substance use type: does not use Lack of Transportation: No Lack of Food: Never True Current Housing: I Have Housing Concerned About Future Housing: No Difficulty Paying Gas/Electric Bills: No Difficulty Paying for Meds: No Currently Unemployed: No Education: High School Diploma/GED Difficulty w/ Childcare or Family Care: No Living arrangements: with family Gender identity (if verbalized by the patient): Female Spiritual care concerns: No Medications Home Medications ?Medication ?Instructions ?Recorded ?Confirmed ?Type cholecalciferol (vitamin D3) 25 2,000 unit PO DAILY 02/17/19 06/10/24 History mcg (1,000 unit) capsule mecobalamin (vitamin B12) 1,000 1,000 mcg sublingual DAILY 02/17/19 06/10/24 History mcg disintegrating tablet,sublingual triamcinolone acetonide 0.1 % 1 applic topical TID #30 grams 11/13/22 06/10/24 Rx topical cream alprazolam 0.25 mg tablet (Xanax) 0.25 mg PO DAILY #10 tabs 11/20/23 06/10/24 Rx citalopram 40 mg tablet See Rx Instructions .Route 04/02/24 06/10/24 Rx .COMPLEX #90 tabs eszopiclone 3 mg tablet (Lunesta) 3 mg PO QHS #1 tablet 06/10/24 06/10/24 Rx capsicum-garlic 200 mg-300 mg cap PO 06/14/24 History capsule cinnamon bark 1 cap PO DAILY 06/14/24 History turmeric 1 cap PO DAILY 06/14/24 History lisinopril 20 mg tablet 20 mg PO DAILY #90 tabs 07/09/24 Rx hydrochlorothiazide 12.5 mg tablet See Rx Instructions .Route 08/23/24 Rx .COMPLEX #90 tabs Sleep Procedure A full CPAP polysomnogram using the [employer] multi-channel system recorded the standard physiologic parameters including EEG, EOG, submentalis EMG, anterior tibialis EMG, EKG, body position, nasal and oral airflow using nasal pressure sensor and thermistor. Respiratory parameters of chest and abdominal movements were recorded with Respiratory Inductance Plethysmography belts. Oxygen saturation was recorded by pulse oximetry. Video monitoring was also performed. Sleep stages, periodic limb movements, and EEG arousals were scored in 30 second epochs according to the criteria of the AASM Scoring Manual. The Apnea-Hypopnea Index was calculated using CMS guidelines for definition of h ypopnea while scoring respiratory events. Patient self-administered Lunesta 3 mg at the beginning of the study. The patient was started on CPAP using a medium ResMed [employer] AirTouch F20 fullface mask with heated humidity, initial pressure was CPAP 5 cm, titrated through CPAP 6 cm, 7 cm, 8 cm, 9 cm, 10 cm, 11 cm, 12 cm and the of highest pressure was CPAP 13 cm. At CPAP 13 cm, the patient spent 144.5 minutes in bed, 10.5 minutes awake, 111.5 minutes in non-REM and 22.5 minutes in REM. Sleep efficiency was 92.7%. The residual apnea-hypopnea index was 1.8 and the lowest saturation was 92%. Supine REM occurred at this setting. Sleep Architecture The total recording time was 446.1 minutes. The total sleep time was 383.5 minutes. Sleep latency was 21.1 minutes. REM latency was 95.0 minutes. Sleep efficiency was 86.0%. The patient had 21 awakenings for an awakening index of 3.3. Wake after Sleep Onset time was 41.5 minutes. The patient spent 36.0 minutes, 9.4% of total sleep time in Stage N1. The patient spent 282.5 minutes, 73.7% in Stage N2. The patient spent 10.5 minutes, 2.7% in Stage N3. The patient spent 54.5 minutes, 14.2% in Stage REM. Respiratory Analysis The patient had 18 hypopneas, 7 obstructive apneas, no mixed apneas, and 9 central apneas for an overall Apnea Hypopnea Index of 5.3 events per hour. The REM Apnea Hypopnea Index was 7.7. The NREM Apnea Hypopnea Index was 4.9. The patient had a Central Apnea Hypopnea Index of 1.4. There were no Respiratory Effort Related Arousals. The Respiratory Disturbance Index is 7.0 events per hour. There was no evidence of Mark-Torres Respirations. Arousals There were 127 total arousals for an arousal index of 19.9. There were 74 spontaneous arousals for an index of 11.6. There were 8 arousals due to respiratory events for an index of 1.3. There were 30 arousals due to periodic limb movements for an index of 4.7. There were 15 arousals due to isolated limb movements for an index of 2.3. Periodic Limb Movements The patient had 47 isolated limb movements with an index of 7.4. The patient had 162 periodic limb movements with index of 25.3. Patient had a total of 209 limb movements with a total limb movement index of 32.7. Oximetry Data The patient had an average oxygen saturation of 93.9% in sleep with a minimum oxygen saturation of 86% and a maximum oxygen saturation of 97%. The patient had 33 oxygen desaturations that were 4% or greater resulting in an Oxygen Desaturation Index of 5.2. The patient spent 0.7 minutes, 0.1% of total sleep time with an oxygen saturation below 88%. Snoring Profile Snoring was moderate, eliminated during the titration. Cardiac Profile The EKG showed normal sinus rhythm. The patient had an average pulse rate of 72.4 bpm with a minimum pulse rate of 60 bpm and a maximum pulse rate of 88 bpm. No arrhythmias noted. EEG Profile EEG was unremarkable, no evidence of seizures. Assessment and Plan Assessment and Plan (1) LIEN (obstructive sleep apnea): Code(s): G47.33 - Obstructive sleep apnea (adult) (pediatric) Status: Acute Assessment and Plan: This full night CPAP titration on 08/23/2024 shows an optimal pressure of CPAP 13 cm using a medium ResMed AirTouch F20 fullface mask with heated humidity. At CPAP 13 cm, the patient spent 144.5 minutes in bed, 10.5 minutes awake, 111.5 minutes in non-REM and 22.5 minutes in REM. Sleep efficiency was 92.7%. The residual apnea-hypopnea index was 1.8 and the lowest saturation was 92%. Supine REM occurred at this setting. The patient should be prescribed this ResMed equipment as well as tubing, filters and reservoir. This should be used with all episodes of sleep. Compliance should be reviewed within 31-90 days of starting therapy for usage greater than 4 hours per night greater than 70% of the nights. The patient should be asked about symptoms such as excessive daytime sleepiness, quality of sleep, decreased nocturia, increased mental functioning such as memory, mood, and concentration. Abnormal REM behaviors were not noted. 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 She had elevated periodic limb movements during the study however these did not cause arousal. BMI is 42.3. Weight management is advised. Clinical data suggests that weight loss of 10% can reduce the severity of respiratory events and snoring and improve AHI by as much as 25%. Data The data obtained during this sleep study is adequate for interpretation. Certification This sleep study has been reviewed by a board certified sleep medicine physician.
[2024-09-17 13:03] VITALS: BMI 42.3
== END 2024-08-24 06:58 | disposition home or self-care (01) ==
LOC: ANHCSM 15:04
PROVIDERS: PCP Clinical Nurse Specialist; Visit Provider Family Medicine
DX: G47.33 Obstructive sleep apnea (adult) (pediatric) (principal)
CPT/HCPCS: 95811